=== PATIENT | female | born 1950 | race Caucasian/White ===

== ENCOUNTER 2019-01-13 16:23 | Emergency (ER) | payer MEDICARE, BC ==
[2019-01-13 16:32] VITALS: BP 124/94
[2019-01-13] MEDS ORDERED: Sodium Chloride 0.9% 10 ML Syringe FLUSH PRN (17:03)
[2019-01-13] MEDS ORDERED: diphenhydrAMINE 50 MG/ML SDV IVPUSH ONE (17:04)
[2019-01-13] MEDS ORDERED: Famotidine 20 MG/2 ML SDV IVPUSH ONE (17:04)
[2019-01-13] MEDS ORDERED: methylPREDNISolone Sodium Succinate 125 MG/2 ML SDV IVPUSH ONE (17:04)
--- NOTE | 2019-01-13 17:08 | EDM.PDOC ---
ED HPI GENERAL MEDICAL PROBLEM - General Chief Complaint: Allergic Reaction Stated Complaint: ALLERGIC RX TO BEE STING Time Seen by Provider: 01/13/19 17:03 Source of Information: Reports: Patient History Limitations: Reports: No Limitations - History of Present Illness INITIAL COMMENTS - FREE TEXT/NARRATIVE: 68-year-old female presents to the ED due to marked redness and erythema with itching right forearm where she was stung by a wasp yesterday evening. She feels the areas expanding in size. She then started to develop some pressure in the back of her throat and heaviness in her chest concerning for worsening allergic response. She was stung between her second and third toes of her left foot about 4 days ago but the swelling is now dissipating. She has no hives itching at the wasp stings on her right forearm which she believes was 2 or 3. Benadryl 50 mg twice a forearm this morning. She is phonating normally. No audible wheezing. Onset: Gradual Onset Date: 01/12/19 (Stung by 3 wasp yesterday right forearm. Erythema of the entire volar and part of the dorsal right forearm noted. This occurred about 1600 hrs. yesterday. She was just getting over a sting to her dorsal left foot 4 days ago.) Duration: Hour(s):, Getting Worse Location: Reports: Upper Extremity, Right (Right upper extremity swelling involving most of her volar right forearm and parts of the radial wrist and extensor surface of forearm. He is to have 2 or 3 separate punctum or wasp stings) Quality: Reports: Ache, Burning, Throbbing Severity: Moderate Improves with: Reports: None Worsens with: Reports: Breathing Context: Reports: Other (Multiple wasp stings right forearm yesterday evening). Denies: Activity, Exercise, Lifting, Sick Contact, Trauma Associated Symptoms: Reports: Chest Pain, Shortness of Breath. Denies: Confusion, Cough, cough w sputum (Morbid chest pressure discomfort with difficulty getting her breath.), Diaphoresis, Fever/Chills, Headaches, Loss of Appetite, Malaise, Nausea/Vomiting, Rash, Syncope (Checked of sensation of shortness of breath.) Treatments BID CLERK: Reports: Other (see below) (She has taken Benadryl 50 mg twice today.) - Related Data Allergies Allergy/AdvReac Type Severity Reaction Status Date / Time Sulfa (Sulfonamide Allergy Hives Verified 01/13/19 16:32 Antibiotics) Home Meds: Home Meds Multivitamin [Daily Roxana] 1 tab PO DAILY 11/06/17 [History] Past Medical History HEENT History: Reports: Impaired Vision, Other (See Below) Other HEENT History: wears eyeglasses Cardiovascular History: Reports: High Cholesterol, [place] Respiratory History: Reports: None Gastrointestinal History: Reports: Colon Polyp, Diverticulosis (hx of diverticulitis) Other Gastrointestinal History: Pt had an "infection in the bowels." Genitourinary History: Reports: Retention, 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 Oncologic (Cancer) History: Reports: Breast Other Oncologic History: 2 lymph nodes taken out right axilla Dermatologic History: Reports: None - Infectious Disease History Infectious Disease History: Reports: Chicken Pox, Influenza - Past Surgical History Head Surgeries/Procedures: Reports: None HEENT Surgical History: Reports: Eye Surgery, Oral Surgery Other HEENT Surgeries/Procedures: Pt had all teeth removd on the top. Cardiovascular Surgical History: Reports: None Neurological Surgical History: Reports: None Oncologic Surgical History: Reports: Lumpectomy Other Oncologic Surgeries/Procedures: Right sided lymph node and lump removal. Social & Family History - Family History Family Medical History: Noncontributory - Tobacco Use Smoking Status *Q: Never Smoker - Caffeine Use Caffeine Use: Reports: Coffee Other Caffeine Use: a cup daily - Recreational Drug Use Recreational Drug Use: No - Living Situation & Occupation Living situation: Reports: Single, Alone Occupation: Employed ([employer], part-time) ED ROS ALLERGIC REACTION - Review of Systems Review Of Systems: See Below Constitutional: Reports: Fatigue (From the Benadryl.). Denies: Fever, Chills, Malaise, Weakness HEENT: Reports: Glasses Respiratory: Reports: Shortness of Breath. Denies: Wheezing (Mild sensation of shortness of breath with a pressure in her upper anterior chest and back of her throat.), Pleuritic Chest Pain, Cough, Hemoptysis Cardiovascular: Denies: Blood Pressure Problem, Claudication, Dyspnea on Exertion, Edema, Lightheadedness, Orthopnea Endocrine: Reports: Fatigue GI/Abdominal: Reports: No Symptoms : Reports: Frequency, Incontinence (Mainly stress-induced) Musculoskeletal: Reports: Joint Pain (Knees hips and low back at times.) Skin: Reports: Other (She has diffuse erythema with increased warmth along almost involving the entire volar aspect of her right forearm. It extends across the ulnar aspect of the extensors of the form as well.) Neurological: Reports: No Symptoms Psychiatric: Reports: No Symptoms Hematologic/Lymphatic: Reports: No Symptoms Immunologic: Reports: No Symptoms ED EXAM GENERAL NO PERIP PULSE - Physical Exam Exam: See Below Exam Limited By: No Limitations General Appearance: Alert, WD/WN, No Apparent Distress, Anxious, Other ( Phonating normally. ) Throat/Mouth: Normal Inspection, Normal Lips, Normal Oropharynx, Other Head: Atraumatic (For the mouth and uvula are normal tongue is nonswollen.), Normocephalic Neck: Normal Inspection, Supple, Non-Tender, Full Range of Motion. No: Carotid Bruit, Lymphadenopathy (L), Lymphadenopathy (R) Respiratory/Chest: No Respiratory Distress, Lungs Clear, Normal Breath Sounds, No Accessory Muscle Use. No: Wheezing Cardiovascular: Normal Peripheral Pulses, Regular Rate, Rhythm, No Edema, No Gallop, No Murmur, No Rub GI/Abdominal: Normal Bowel Sounds, Soft, Non-Tender, No Organomegaly, No Abnormal Bruit Extremities: Other (Diffuse erythema of the entire volar right forearm from wrist to close to the elbow and also along the ulnar aspect of the forearm. Appears to been stung 2 or 3 times by a wasp or wasps. Has a fairly large local allergic response. ) Neurological: Alert, Oriented (Injury occurred about 24 hours ago. ), CN II-XII Intact, Normal Cognition Psychiatric: Anxious Skin Exam: Warm, Dry, Intact, Normal Color, Erythema, Other (Increased warmth right forearm) Course - Vital Signs Last Recorded V/S: Last Vital Signs Temp 36.6 C 01/13/19 16:29 Pulse 92 01/13/19 16:29 Resp 16 01/13/19 16:29 BP 124/94 H 01/13/19 16:29 Pulse Ox 96 01/13/19 16:29 - Orders/Labs/Meds Orders: Active Orders 24 hr Category Date Time Status Peripheral IV Care [RC] . DIRECTED Care 01/13/19 17:03 Active Sodium Chloride 0.9% [Saline Flush] Med 01/13/19 17:03 Active 10 ml FLUSH ASDIRECTED PRN Peripheral IV Insertion Adult [OM.PC] Stat Oth 01/13/19 17:03 Ordered Medication Orders Sodium Chloride (Saline Flush) 10 ml FLUSH ASDIRECTED PRN PRN Reason: Keep Vein Open Last Admin: 01/13/19 17:38 Dose: 10 ml Meds: Medications Generic Name Dose Route Start Last Admin Trade Name Freq PRN Reason Stop Dose Admin Sodium Chloride 10 ml 01/13/19 17:03 01/13/19 17:38 Saline Flush FLUSH 10 ml ASDIRECTED PRN Administration Keep Vein Open Discontinued Medications Generic Name Dose Route Start Last Admin Trade Name Freq PRN Reason Stop Dose Admin Diphenhydramine HCl 25 mg 01/13/19 17:04 01/13/19 17:36 Benadryl IVPUSH 01/13/19 17:05 25 mg ONETIME ONE Administration Famotidine 20 mg 01/13/19 17:04 01/13/19 17:41 Pepcid IVPUSH 01/13/19 17:05 20 mg ONETIME ONE Administration Methylprednisolone Sodium Succinate 125 mg 01/13/19 17:04 01/13/19 17:39 Solu-Medrol IVPUSH 01/13/19 17:05 125 mg ONETIME ONE Administration - Radiology Interpretation Free Text/Narrative:: 68-year-old female presents the ED with gradually spreading erythema and pain with some itching to the right forearm after being stung by a wasp or wasps yesterday evening. Today she appreciated a sensation of dyspnea pressure in her chest and upper throat. She there were 4 was concerned that she developing more of a systemic response to the hymenoptera stings. Examination reveals normal phonation. For the mouth tongue and uvula are normal. Lungs are clear to stage percussion without any wheezing. Very large local allergic reaction to the entire right volar forearm and part of the extensor surface of the forearm. Plan Solu-Medrol 125 mg IV and Pepcid 20 mg IV and Benadryl 25 mg IV. - Re-Assessments/Exams Free Text/Narrative Re-Assessment/Exam: 01/13/19 17:55: Patient is feeling much improved. She will therefore be discharged to home. She was advised that the large local reaction to her right forearm will dissipate over the next 48 hours or so. She can still continue to use Benadryl 50 mg every 6 hours if needed to relieve itching. She is to try hard not to get stung any further this season as she may be developing an increased antibody titer to wasp/hymenoptera venom. Follow-up if any further problems occur. Departure - Departure Time of Disposition: 18:07 Disposition: Home, Self-Care 01 Condition: Fair Clinical Impression: Hymenoptera reaction Qualifiers: Encounter type: initial encounter Injury intent: accidental or unintentional Qualified Code(s): T63.441A - Toxic effect of venom of bees, accidental ( unintentional), initial encounter - Discharge Information *PRESCRIPTION DRUG MONITORING PROGRAM REVIEWED*: Not Applicable *COPY OF PRESCRIPTION DRUG MONITORING REPORT IN PATIENT JEM: Not Applicable Instructions: Bee, Wasp, or Hornet Sting, Adult Referrals: Brendan Glavan MD [Primary Care Provider] - Forms: ED Department Discharge Additional Instructions: Evaluation the emergency room today in regards to a fairly large local reaction to the right forearm from likely multiple wasp stings to that arm occurring about 24 hours ago. Recent sting to the left anterior foot which has resolved. Today he developed some pressure in the back of her throat and anterior chest suggesting more of a systemic response to hymenoptera's venom. You're therefore given a dose of Solu-Medrol intravenously with Pepcid 20 mg IV to stave off allergic reaction response. K to continue Benadryl 50 mg every 6 hours if needed for itching in the right forearm. Of note the redness should dissipate now over the next 48 hours or so. Follow-up with personal care physician or return to the ED if any further problems occur. - My Orders Last 24 Hours: My Active Orders 01/13/19 17:03 Peripheral IV Care [RC] . DIRECTED Sodium Chloride 0.9% [Saline Flush] 10 ml FLUSH ASDIRECTED PRN Peripheral IV Insertion Adult [OM.PC] Stat - Assessment/Plan Last 24 Hours: My Active Orders 01/13/19 17:03 Peripheral IV Care [RC] . DIRECTED Sodium Chloride 0.9% [Saline Flush] 10 ml FLUSH ASDIRECTED PRN Peripheral IV Insertion Adult [OM.PC] Stat
== END 2019-01-13 18:45 | disposition home or self-care (01) ==
LOC: JD.ED 16:23
DX: T63.461A Toxic effect of venom of wasps, accidental (unintentional), initial encounter (principal); I25.2 Old myocardial infarction; Z86.2 Personal history of diseases of the blood and blood-forming organs and certain disorders involving the immune mechanism; Z88.2 Allergy status to sulfonamides
CPT/HCPCS: 96374; 96375; 99282; J1200; J2930; J3490

== ENCOUNTER 2019-01-25 13:16 | Emergency (ER) | payer MEDICARE, BC ==
[2019-01-25 13:27] VITALS: BP 127/81; PULSE 90
[2019-01-25] MEDS ORDERED: Famotidine 20 MG Tab PO ONE (13:57)
[2019-01-25] MEDS ORDERED: predniSONE 20 MG Tab PO ONE (13:57)
--- NOTE | 2019-01-25 14:04 | EDM.PDOC ---
ED HPI GENERAL MEDICAL PROBLEM - General Chief Complaint: Bite:Animal, Insect Stated Complaint: BEE STING Time Seen by Provider: 01/25/19 13:50 Source of Information: Reports: Patient History Limitations: Reports: No Limitations - History of Present Illness INITIAL COMMENTS - FREE TEXT/NARRATIVE: This 68-year-old female reports to the ED after once again being stung by a bee in her left dorsal hand yesterday p.m. She is seen in through the ED today about 24 hours post stenting. This is the third time this year she's been stung by a wasp or bee. Very large local reaction to the dorsal aspect of her left hand and forearm. She came to the ED this morning because she started to feel her nose close up and her ears close up and bit of a pressure in the back of her throat. She has mild generalized pruritus but no other hives. Doesn't feel any respiratory distress but was worried he was going to get worse. Patient took Benadryl prior to coming to the ED and she reports some of the swelling and erythema in the dorsal forearm has improved after taking Benadryl. It shows wasn't quite as bad. Onset: Sudden Onset Date: 01/24/19 Onset Time: 16:00 Duration: Hour(s): Location: Reports: Upper Extremity, Left Quality: Reports: Ache (She was stung in the dorsal aspect of her left hand.), Throbbing Severity: Mild Improves with: Reports: Rest (Motrin is helped some with the swelling as his Benadryl.) Worsens with: Reports: Movement (Cannot make a fist due to the amount of swelling of the dorsal hand. It is painful and throbbing but better than yesterday.) Context: Reports: Trauma (In 16 from a bee yesterday left dorsal hand). Denies : Activity, Exercise, Lifting, Sick Contact Associated Symptoms: Reports: Other ([place] like her ears were closing in nose is occluded and some pressure in the back of her throat us morning she feels this may well be due to the hymenoptera venom.). 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: Other (see below) (Benadryl 50 mg taken about 2 hours before coming to the ED today.) - Related Data Allergies Allergy/AdvReac Type Severity Reaction Status Date / Time Sulfa (Sulfonamide Allergy Hives Verified 01/25/19 13:27 Antibiotics) Home Meds: Home Meds Multivitamin [Daily Roxana] 1 tab PO DAILY 11/06/17 [History] predniSONE [Deltasone] 20 mg PO BID #6 tablet 01/25/19 [Rx] Past Medical History HEENT History: Reports: Impaired Vision, Other (See Below) Other HEENT History: wears eyeglasses Cardiovascular History: Reports: High Cholesterol, [place] Respiratory History: Reports: None Gastrointestinal History: Reports: Colon Polyp, Diverticulosis Other Gastrointestinal History: Pt had an "infection in the bowels." Genitourinary History: Reports: Retention, 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 Oncologic (Cancer) History: Reports: Breast Other Oncologic History: 2 lymph nodes taken out right axilla Dermatologic History: Reports: None - Infectious Disease History Infectious Disease History: Reports: Chicken Pox, Influenza - Past Surgical History Head Surgeries/Procedures: Reports: None HEENT Surgical History: Reports: Eye Surgery, Oral Surgery Other HEENT Surgeries/Procedures: Pt had all teeth removd on the top. Cardiovascular Surgical History: Reports: None Neurological Surgical History: Reports: None Oncologic Surgical History: Reports: Lumpectomy Other Oncologic Surgeries/Procedures: Right sided lymph node and lump removal. Social & Family History - Family History Family Medical History: Noncontributory - Tobacco Use Smoking Status *Q: Never Smoker - Caffeine Use Caffeine Use: Reports: Coffee Other Caffeine Use: a cup daily - Recreational Drug Use Recreational Drug Use: No - Living Situation & Occupation Living situation: Reports: Single, Alone Occupation: Employed ([employer], part-time) ED ROS GENERAL - Review of Systems Review Of Systems: See Below Constitutional: Denies: Fever, Chills, Malaise, Weakness, Fatigue, Decreased Appetite, Weight Loss HEENT: Reports: Other (Feels her ears are clogged like she can't equilibrate pressures. Doses also completely clogged up. She can't breathe through her nose at all.) Respiratory: Denies: Shortness of Breath, Wheezing, Pleuritic Chest Pain, Cough , Sputum, Hemoptysis, Other Cardiovascular: Denies: Chest Pain, Claudication, Dyspnea on Exertion, Edema, Lightheadedness, Orthopnea Endocrine: Reports: No Symptoms GI/Abdominal: Reports: No Symptoms : Reports: Frequency Musculoskeletal: Reports: Joint Pain (Some joint pain knees hips low back at times) Skin: Reports: Other (Marked swelling at site of insect sting dorsal aspect left hand. The hand dorsally is thickened to about 2 times normal thickness of her hand. It is mildly erythematous. She states still preserved fairly painful in terms of burning and throbbing. Erythema seem to be going up her dorsal forearm this morning towards her elbow but is improved since she took Benadryl 50 mg 2 hours ago. ) Neurological: Denies: Confusion, Dizziness, Headache, Numbness, Pre-Existing Deficit, Syncope, Tingling, Trouble Speaking, Difficulty Walking, Weakness Psychiatric: Reports: No Symptoms Hematologic/Lymphatic: Reports: No Symptoms Immunologic: Reports: No Symptoms ED EXAM, ANIMAL BITE - Physical Exam Exam: See Below Exam Limited By: No Limitations General Appearance: Alert, WD/WN, Mild Distress, Other (Vital signs show temperature 36.6. Pulse is 90 and sinus respectively 16 BP 127/81 and sats are 95% on room air.) Eye Exam: Bilateral Eye: Normal Inspection Ears: Normal TMs Nose: Nasal Swelling (Both of the medial and speech evidence are very swollen and edematous. There including both sides of her naris. There is no rhinorrhea.) Throat/Mouth: Normal Inspection, Normal Lips, Normal Teeth, Normal Oropharynx, Other Head: Atraumatic, Normocephalic (The uvula and floor of mouth and tongue are normal.), Other Neck: Normal Inspection, Supple, Non-Tender (Her voice is normal as well.), Full Range of Motion. No: Carotid Bruit, Lymphadenopathy (L), Lymphadenopathy ( R) Respiratory/Chest: No Respiratory Distress, Lungs Clear, Normal Breath Sounds, No Accessory Muscle Use. No: Rales, Rhonchi, Wheezing Cardiovascular: Normal Peripheral Pulses, Regular Rate, Rhythm, No Edema, No Gallop, No Rub Extremities: Other (Examination of her left hand shows it to be markedly swollen dorsally hand as well twice as thick as normal. It is mildly erythematous. She is unable to make a full fist to the swelling dorsal hand. There is slight erythema over the wrist as well but range of motion is full. Dorsal fingers are also slightly swollen in the proximal areas in particular in the webspaces between the fingers. She has a fairly large local allergic response to hymenoptera sting dorsal left hand.) Neurological: Alert, Oriented, CN II-XII Intact, Normal Cognition, Normal Gait Psychiatric: Normal Affect, Normal Mood Skin Exam: Normal Color, Warm/Dry, Rash (Swelling erythema dorsal aspect of left hand is as described above.) Course - Vital Signs Last Recorded V/S: Last Vital Signs Temp 36.6 C 01/25/19 13:26 Pulse 90 01/25/19 13:26 Resp 16 01/25/19 13:26 BP 127/81 01/25/19 13:26 Pulse Ox 95 01/25/19 13:26 - Orders/Labs/Meds Meds: Medications Discontinued Medications Generic Name Dose Route Start Last Admin Trade Name Bib PRN Reason Stop Dose Admin Famotidine 20 mg 01/25/19 13:57 01/25/19 14:18 Pepcid PO 01/25/19 13:58 20 mg ONETIME ONE Administration Prednisone 20 mg 01/25/19 13:57 01/25/19 14:18 Prednisone PO 01/25/19 13:58 20 mg ONETIME ONE Administration - Radiology Interpretation Free Text/Narrative:: 68-year-old female presents to the ED with a hymenoptera sting to the left dorsal hand that occurred yesterday p.m. This morning she felt that her ears were closing off in her nose is completely congested and a pressure in the back of her throat which she felt represented and worsening allergic response. She has marked swelling of the entire dorsal left hand to the hymenoptera sting with swelling of the proximal phalange ease. Son able to make a fist. However clinically she has no urticaria. Pruritus is limited to the sting site. She is experiencing eustachian tube dysfunction due to swelling of the turbinates in both sides of her nose which may or may not be related to hymenoptera sting. There is no change in her formation. Lungs are clear without wheeze. Plan continue Benadryl 60 mg every 6 hours as needed for relief of itching and swelling. Given Pepcid 20 mg by mouth in the ED and 20 mg of prednisone. I'm going to write her prescription for prednisone 20 mg twice a day for the next 3 days with the next tablet due to later tonight before bed. She'll follow up if any other problems occur. Departure - Departure Time of Disposition: 13:58 Disposition: Home, Self-Care 01 Condition: Fair Clinical Impression: Hymenoptera sting Qualifiers: Encounter type: initial encounter Injury intent: accidental or unintentional Qualified Code(s): T63.481A - Toxic effect of venom of other arthropod, accidental (unintentional), initial encounter - Discharge Information *PRESCRIPTION DRUG MONITORING PROGRAM REVIEWED*: Not Applicable *COPY OF PRESCRIPTION DRUG MONITORING REPORT IN PATIENT JEM: Not Applicable Prescriptions: predniSONE [Deltasone] 20 mg PO BID #6 tablet Instructions: Bee, Wasp, or Hornet Sting, Adult Referrals: Brendan Galvan MD [Primary Care Provider] - Forms: ED Department Discharge Additional Instructions: Evaluation int he emergency room today in regards to bee sting to the dorsal aspect of your left hand. This is created a large local reaction. You have associated symptoms of plugged up ears or eustachian tubes and very congested nose may be due to blood vessel dilatation in response to allergic reaction. Wheezing or signs of respiratory compromise. Suggest treatment with prednisone 20 mg twice daily rectus and supper for the next 3 days. First tablet was provided in the ED. Try and get a second tablet tonight at bedtime. Continue Benadryl 50 mg every 6 hours needed to reduce pain and swelling and itchiAlso given her first dose of Pepcid 20 mg in the ED. Use Motrin 600 mg every 6 hours if needed for pain relief as it reduces inflammation as well.
== END 2019-01-25 14:20 | disposition home or self-care (01) ==
LOC: JD.ED 13:16
DX: T63.441A Toxic effect of venom of bees, accidental (unintentional), initial encounter (principal); I25.2 Old myocardial infarction; Z88.2 Allergy status to sulfonamides; Z79.899 Other long term (current) drug therapy
CPT/HCPCS: 99282; A9270

== ENCOUNTER 2019-09-03 13:06 | Emergency (ER) | payer MEDICARE, BC ==
[2019-09-03 13:25] VITALS: BP 81/37; PULSE 61
[2019-09-03] MEDS ORDERED: Sodium Chloride 0.9% 1,000 ML IV ONE ×2 (13:37→14:36)
--- NOTE | 2019-09-03 13:44 | EDM.PDOC ---
ED HPI GENERAL MEDICAL PROBLEM - General Chief Complaint: Neurological Problem Stated Complaint: [facility] Time Seen by Provider: 09/03/19 13:10 Source of Information: Reports: Patient, EMS Notes Reviewed, RN Notes Reviewed History Limitations: Reports: No Limitations - History of Present Illness INITIAL COMMENTS - FREE TEXT/NARRATIVE: The patient is a 69-year-old female who presents to the ED via [facility] for the evaluation of feeling faint/passing out. The patient notes that she had a tooth extraction done yesterday, and feels fine and no pain from that. But she realized she did not eat or drink anything yesterday at all. She got up this morning and proceeded to start making some juncturae daily at home when she had some feelings of being flush, dizzy, and feeling as if she was going to faint, as she states that she bent over, and the feelings got better and she would stand up and makes more choke rincon jelly, the feelings return. It was at this time that she went to go sit down, and called her friend , who is a nurse. The patient's friend quickly assessed her and thought maybe she would benefit from having an ambulance check her out. Upon arrival of the ambulance, it was stated that her blood pressure was systolically in the 60s/40s , and they did start IV and give her 500 mill normal saline bolus. Patient states that she is still feeling slight lightheadedness, her blood pressure at time of triage was 81/37, blood sugar 122, she is alert and oriented, she also states she feels "silly as she believes it is due to having poor meal intake yesterday." A repeat blood pressure in the ER, demonstrates a systolic pressure of 91/49. Patient denies any other sick-like symptoms, and states she has been staying at home - Related Data Allergies Allergy/AdvReac Type Severity Reaction Status Date / Time Sulfa (Sulfonamide Allergy Hives Verified 01/25/19 13:27 Antibiotics) Home Meds: Home Meds Multivitamin [Daily Roxana] 1 tab PO DAILY 11/06/17 [History] predniSONE [Deltasone] 20 mg PO BID #6 tablet 01/25/19 [Rx] Aspirin/Calcium Carbonate [Kajal Women's Aspirin Tablet] 81 mg PO DAILY [History] Famotidine [Pepcid] 20 mg PO DAILY 09/03/19 [History] Fish Oil/Hoquiam-3 Fatty Acids [Fish Oil 1,000 MG] 1 tab PO DAILY 09/03/19 [ History] Pravastatin [Pravachol] 20 mg PO DAILY 09/03/19 [History] Sertraline [Zoloft] 100 mg PO DAILY 09/03/19 [History] Tamsulosin [Flomax] 0.4 mg PO DAILY 09/03/19 [History] diphenhydrAMINE [Benadryl] 25 mg PO Q4HR PRN 09/03/19 [History] Past Medical History HEENT History: Reports: Impaired Vision, Other (See Below) Other HEENT History: wears eyeglasses Cardiovascular History: Reports: High Cholesterol, [place] Gastrointestinal History: Reports: Colon Polyp, Diverticulosis Other Gastrointestinal History: Pt had an "infection in the bowels." Genitourinary History: Reports: Retention, Urinary 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 Oncologic (Cancer) History: Reports: Breast Other Oncologic History: 2 lymph nodes taken out right axilla - Infectious Disease History Infectious Disease History: Reports: Chicken Pox, Influenza - Past Surgical History HEENT Surgical History: Reports: Eye Surgery, Oral Surgery Other HEENT Surgeries/Procedures: Pt had all teeth removd on the top. GI Surgical History: Reports: Colonoscopy Oncologic Surgical History: Reports: Lumpectomy Other Oncologic Surgeries/Procedures: Right sided lymph node and lump removal. Social & Family History - Family History Family Medical History: Noncontributory - Tobacco Use Smoking Status *Q: Former Smoker Used Tobacco, but Quit: Yes Month/Year Tobacco Last Used: 1989 - Caffeine Use Caffeine Use: Reports: Coffee Other Caffeine Use: a cup daily - Recreational Drug Use Recreational Drug Use: No - Living Situation & Occupation Living situation: Reports: Single, Alone Occupation: Employed ([employer], part-time) ED ROS GENERAL - Review of Systems Review Of Systems: Comprehensive ROS is negative, except as noted in HPI. ED EXAM, GENERAL - Physical Exam Exam: See Below Exam Limited By: No Limitations General Appearance: Alert, WD/WN, No Apparent Distress Eye Exam: Bilateral Eye: EOMI, Normal Inspection, PERRL Ears: Normal External Exam Nose: Normal Inspection Throat/Mouth: Normal Inspection, Normal Lips, Normal Teeth, Normal Gums, Normal Oropharynx, Normal Voice, No Airway Compromise Head: Atraumatic, Normocephalic Neck: Normal Inspection Respiratory/Chest: No Respiratory Distress, Lungs Clear, Normal Breath Sounds, No Accessory Muscle Use, Chest Non-Tender Cardiovascular: Normal Peripheral Pulses, Regular Rate, Rhythm, No Murmur GI/Abdominal: Normal Bowel Sounds, Soft, Non-Tender, No Distention, No Mass Extremities: Normal Inspection, Normal Capillary Refill Neurological: Alert, Oriented, CN II-XII Intact (grossly), Normal Cognition, No Motor/Sensory Deficits Psychiatric: Normal Affect, Normal Mood Skin Exam: Warm, Dry, Intact, Normal Color, No Rash Course - Vital Signs Last Recorded V/S: Last Vital Signs Temp 97.4 F 09/03/19 13:18 Pulse 61 09/03/19 13:18 Resp 16 09/03/19 13:18 BP 81/37 L 09/03/19 13:18 Pulse Ox 98 09/03/19 13:18 - Orders/Labs/Meds Orders: Active Orders 24 hr Category Date Time Status Orthostatic Vital Signs [RC] ASDIRECTED Care 09/03/19 15:43 Ordered UA W/MICROSCOPIC [URIN] Stat Lab 09/03/19 13:37 Ordered Labs: Laboratory Tests 09/03/19 09/03/19 09/03/19 Range/Units 13:19 13:51 13:51 WBC 6.87 (3.98-10.04) K/mm3 RBC 4.01 (3.98-5.22) M/mm3 Hgb 12.0 (11.2-15.7) gm/dl Hct 36.9 (34.1-44.9) % MCV 92.0 (79.4-94.8) fl MCH 29.9 (25.6-32.2) pg MCHC 32.5 (32.2-35.5) g/dl RDW Std Deviation 46.6 H (36.4-46.3) fL Plt Count 191 (182-369) K/mm3 MPV 9.3 L (9.4-12.3) fl Neutrophils % (Manual) 80 H (40-60) % Band Neutrophils % 0 (0-10) % Lymphocytes % (Manual) 16 L (20-40) % Atypical Lymphs % 0 % Monocytes % (Manual) 3 (2-10) % Eosinophils % (Manual) 1 (0.7-5.8) % Basophils % (Manual) 0 L (0.1-1.2) Platelet Estimate Adequate Plt Morphology Comment Normal RBC Morph Comment Normal Sodium 140 (136-145) mEq/L Potassium 4.5 (3.5-5.1) mEq/L Chloride 103 (98-107) mEq/L Carbon Dioxide 21 (21-32) mEq/L Anion Gap 20.5 H (5-15) BUN 24 H (7-18) mg/dL Creatinine 1.5 H (0.55-1.02) mg/dL Est Cr Clr Drug Dosing 31.40 mL/min Estimated GFR (MDRD) 34 (>60) mL/min BUN/Creatinine Ratio 16.0 (14-18) Glucose 112 (80-115) mg/dL POC Glucose 122 H (80-115) mg/dL Calcium 8.9 (8.5-10.1) mg/dL Magnesium 1.9 (1.8-2.4) mg/dl Total Bilirubin 0.6 (0.2-1.0) mg/dL AST 24 (15-37) U/L ALT 27 (14-59) U/L Alkaline Phosphatase 69 (46-116) U/L Total Protein 6.8 (6.4-8.2) g/dl Albumin 3.7 (3.4-5.0) g/dl Globulin 3.1 gm/dL Albumin/Globulin Ratio 1.2 (1-2) Meds: Medications Discontinued Medications Generic Name Dose Route Start Last Admin Trade Name Freq PRN Reason Stop Dose Admin Sodium Chloride 1,000 mls @ 999 mls/hr 09/03/19 13:37 09/03/19 13:44 Normal Saline IV 09/03/19 14:37 999 mls/hr ONETIME ONE Administration Sodium Chloride 1,000 mls @ 999 mls/hr 09/03/19 14:36 09/03/19 14:52 Normal Saline IV 09/03/19 15:36 999 mls/hr ONETIME ONE Administration - Re-Assessments/Exams Free Text/Narrative Re-Assessment/Exam: 09/03/19 13:47 Patient presents to the ED for the evaluation of feeling faint. Have ordered another liter of fluids, and some basic labs, I do believe the patient is just hypovolemic, will see if the fluids helped, she will also be given a meal to eat in the ER. 09/03/19 14:35 Patient's laboratory evaluation is back, demonstrates an elevated creatinine, BUN and an anion gap which would suggest dehydration, will likely give her another liter of fluids after the initial bolus, and discharged home with general recommendations. 09/03/19 15:44 The patient's blood pressure has improved, while in the ER. And has been in the low to mid 100s systolically. Patient reports feeling better, and was able to eat a meal. Ortho VS will be performed and will likely discharge home after the second bag of fluids has been given. Departure - Departure Time of Disposition: 15:46 Disposition: Home, Self-Care 01 Condition: Good Clinical Impression: Hypotension due to hypovolemia - Discharge Information *PRESCRIPTION DRUG MONITORING PROGRAM REVIEWED*: No *COPY OF PRESCRIPTION DRUG MONITORING REPORT IN PATIENT JEM: No Instructions: Dehydration, Adult, [id number] Forms: ED Department Discharge Additional Instructions: You were evaluated in the ER today regarding the feelings of being faint or dizzy. You did have some laboratory evaluation, demonstrated that you were quite dehydrated, you did receive 2 bags of IV fluid in the ER, and another half bag while in route to the ER from ambulance service. This did seem to help provide you relief of your symptoms. Recommend that you go home, and eat another good meal or 2 tonight, and try to eat at least 3 meals a day, and increase your oral fluid intake to help prevent further dehydration. Please return to the ER at any time if symptoms change or worsen. Sepsis Event Note - Evaluation Sepsis Screening Result: No Definite Risk - Focused Exam Vital Signs: Vital Signs Temp Pulse Resp BP Pulse Ox 09/03/19 13:18 97.4 F 61 16 81/37 L 98 Date Exam was Performed: 09/03/19 Time Exam was Performed: 15:44 - My Orders Last 24 Hours: My Active Orders 09/03/19 13:37 UA W/MICROSCOPIC [URIN] Stat 09/03/19 15:43 Orthostatic Vital Signs [RC] ASDIRECTED - Assessment/Plan Last 24 Hours: My Active Orders 09/03/19 13:37 UA W/MICROSCOPIC [URIN] Stat 09/03/19 15:43 Orthostatic Vital Signs [RC] ASDIRECTED
== END 2019-09-03 16:32 | disposition home or self-care (01) ==
LOC: JD.ED 13:06
DX: E86.1 Hypovolemia (principal); I95.9 Hypotension, unspecified; E78.00 Pure hypercholesterolemia, unspecified; I25.2 Old myocardial infarction; F41.9 Anxiety disorder, unspecified; F32.9 Major depressive disorder, single episode, unspecified; Z87.891 Personal history of nicotine dependence; Z88.2 Allergy status to sulfonamides; Z79.82 Long term (current) use of aspirin; Z79.899 Other long term (current) drug therapy
CPT/HCPCS: 36415; 80053; 81001; 82962; 83735; 85007; 85027; 96360; 96361; 99284; J7030; 99283

== ENCOUNTER 2023-10-29 10:07 | Emergency (ER) | payer MEDICARE, BC ==
[2023-10-29] MEDS: Sodium Chloride 0.9% 10 ML Syringe FLUSH PRN (11:05)
[2023-10-29 11:16] LABS: BASOPHILS PERCENT AUTO 0.2 % (0.0-1.0); EOSINOPHILS ABSOLUTE AUTO 0.1 K/mm3 (0.0-0.4); EOSINOPHILS PERCENT AUTO 0.9 % (0.0-6.0); HEMATOCRIT 40.5 % (37.0-47.0); HEMOGLOBIN 13.3 gm/dl (12.0-16.0); IMMATURE GRAN PERCENT AUTO 0.9 % (0.0-0.4); LYMPHOCYTES ABSOLUTE AUTO 1.7 K/mm3 (1.0-4.8); LYMPHOCYTES PERCENT AUTO 15.3 % (24.0-44.0); MEAN CORPUSCULAR HEMOGLOBIN 29.4 pg (28.0-32.0); MEAN CORPUSCULAR HGB CONC 32.8 g/dl (32.0-36.0); MEAN CORPUSCULAR VOLUME 89.6 fl (83.0-99.0); MEAN PLATELET VOLUME 9.2 fl (9.4-12.3); MONOCYTES ABSOLUTE AUTO 0.6 K/mm3 (0.0-0.8); MONOCYTES PERCENT AUTO 5.5 % (0.0-8.0); NEUTROPHILS ABSOLUTE AUTO 8.8 K/mm3 (1.8-7.7); NEUTROPHILS PERCENT AUTO 77.2 % (41.0-71.0); PLATELET COUNT,PLT 258 K/mm3 (150-400); RED BLOOD CELL COUNT 4.52 M/mm3 (4.10-5.30); WHITE BLOOD CELL COUNT,WBC 11.32 K/mm3 (3.9-11.3)
[2023-10-29 11:46] LABS: A/G RATIO 1.1 (1-2); ALBUMIN 3.8 g/dl (3.4-5.0); BILIRUBIN TOTAL 0.4 mg/dL (0.2-1.0); BUN/CREATININE RATIO 23.8 (14-18); C-REACTIVE PROTEIN 0.23 mg/dL (<0.30); CALCIUM 9.1 mg/dL (8.5-10.1); CREATININE 1.3 mg/dL (0.55-1.02); EST CRCL DRUG DOSING (CG) 32.78 mL/min; MAGNESIUM 1.7 mg/dL (1.8-2.4); PROTEIN TOTAL,TP 7.3 g/dl (6.4-8.2)
[2023-10-29] MEDS: Furosemide 40 MG/4 ML VIAL IVPUSH ONE (12:06)
[2023-10-29] MEDS ORDERED: Albuterol 6.7 GM Inhaler INH PRN ×2 (12:42→12:45)
[2023-10-29] MEDS ORDERED: Budesonide 0.5 MG/2 ML Neb Susp NEB ONE (12:42)
[2023-10-29] MEDS: Albuterol 0.083% 2.5 MG/3 ML Neb Soln NEB ONE (12:46)
== END 2023-10-29 14:00 | disposition home or self-care (01) ==
LOC: MERGE 10:07 → JD.ED 10:07
DX: R06.02 Shortness of breath (principal); R06.2 Wheezing; I25.2 Old myocardial infarction; E78.00 Pure hypercholesterolemia, unspecified; E03.9 Hypothyroidism, unspecified; Z88.2 Allergy status to sulfonamides; Z79.82 Long term (current) use of aspirin; Z79.51 Long term (current) use of inhaled steroids; Z79.899 Other long term (current) drug therapy; Z86.16 Personal history of COVID-19; Z87.891 Personal history of nicotine dependence
CPT/HCPCS: 36415; 71045; 80053; 83735; 83880; 84484; 85025; 85379; 86140; 93005; 94640; 96374; 99285; A9270; J1940; J3490; J7620-GY

== ENCOUNTER 2024-05-04 10:02 | Emergency (ER) | payer MEDICARE, BC | END 2024-05-04 13:43 | disposition home or self-care (01) | LOC: JD.ED 10:02 | DX: S89.91XA Unspecified injury of right lower leg, initial encounter (principal); E78.00 Pure hypercholesterolemia, unspecified; I25.2 Old myocardial infarction; E03.9 Hypothyroidism, unspecified; Z87.891 Personal history of nicotine dependence; Z79.82 Long term (current) use of aspirin; Z79.899 Other long term (current) drug therapy; Z91.030 Bee allergy status; Z88.2 Allergy status to sulfonamides; X50.9XXA Other and unspecified overexertion or strenuous movements or postures, initial encounter | CPT/HCPCS: 73562-26-RT; 73562-RT; 99283 ==

== ENCOUNTER 2025-03-25 09:55 | Emergency (ER) | payer MEDICARE, BC | END 2025-03-25 12:45 | disposition home or self-care (01) | LOC: JD.ED 09:55 | DX: M17.12 Unilateral primary osteoarthritis, left knee (principal); I25.2 Old myocardial infarction; Z88.2 Allergy status to sulfonamides; Z91.030 Bee allergy status; Z79.82 Long term (current) use of aspirin; Z79.899 Other long term (current) drug therapy | CPT/HCPCS: 73562-26-LT; 73562-LT; 93971-26-LT; 93971-LT; 99284 ==